=== PATIENT | male | born 2000 | race Two or more races ===

== ENCOUNTER 2021-03-01 02:01 | Emergency (ER) | payer BC ==
[~2021-03-01] VITALS: Ht 175.3 cm; Wt 95.3 kg
[2021-03-01 04:24] VITALS: BP 126/80
[2021-03-01] MEDS ORDERED: NAPR1TAB87 PO (04:33)
== END 2021-03-01 05:10 | disposition home or self-care (01) ==
LOC: ER 02:05
DX: R09.1 Pleurisy (principal); E66.9 Obesity, unspecified; Z68.30 Body mass index [BMI] 30.0-30.9, adult
CPT/HCPCS: 36415; 71045; 87426